=== PATIENT | male | born 1955 | race African-American/Black ===

== ENCOUNTER 2017-07-15 16:59 | Emergency (ER) | payer OTHER, MEDICARE ==
[~2017-07-15] VITALS: Ht 177.8 cm; Wt 70.3 kg
[2017-07-15 17:06] VITALS: BP_SYST 97
[2017-07-15] MEDS ORDERED: methylPREDNISolone SOD SUCC/PF 62.5 MG/ML VIAL IVP ONE (17:15)
[2017-07-15 17:34] LABS: EOSINOPHILS # (AUTO) 0.5 K/uL (0.0-0.4); HEMATOCRIT 46.1 % (36-54); MONOCYTES # (AUTO) 0.7 K/uL (0.0-1.0)
[2017-07-15 17:36] LABS: BASOPHILS % (AUTO) 0.3 % (0.0-2.0); EOSINOPHILS % (AUTO) 5.4 % (0.0-4.0); LYMPHOCYTES # (AUTO) 3.6 K/uL (1.0-5.5); LYMPHOCYTES % (AUTO) 39.8 % (20.5-51.5); MEAN CORPUSCULAR HEMOGLOBIN 34 pg (27-31); MEAN CORPUSCULAR HGB CONC 33 % (32-36); MEAN CORPUSCULAR VOLUME 104 fL (79.0-98.0); MONOCYTES % (AUTO) 7.1 % (1.7-9.3); NEUTROPHILS # (AUTO) 4.4 K/uL (1.8-7.7); NEUTROPHILS % (AUTO) 47.4 % (40.0-70.0); PLATELET COUNT (AUTO) 214 K/uL (130-430); RED BLOOD CELL COUNT(AUTO) 4.43 MIL/uL (4.2-6.2); RED CELL DISTRIBUTION WIDTH 12.7 % (9.0-15.0); WHITE BLOOD COUNT (AUTO) 9.2 K/uL (4.8-10.8)
[2017-07-15 17:44] LABS: CALCIUM 9.2 mg/dL (8.4-11.0); CREATININE 1.35 mg/dL (0.55-1.30); POTASSIUM 3.5 mmol/L (3.5-5.1)
[2017-07-15 17:49] LABS: ALBUMIN 3.5 g/dL (3.4-4.8); TOTAL BILIRUBIN 0.5 mg/dL (0.0-1.0)
[2017-07-15 19:00] VITALS: BP_SYST 133
== END 2017-07-15 19:00 | disposition home or self-care (01) ==
LOC: SED 16:59
DX: J45.901 Unspecified asthma with (acute) exacerbation (principal); Z88.2 Allergy status to sulfonamides
CPT/HCPCS: 36415; 71045; 80053; 83880; 84484; 85025; 93005; 96374; 99285; J2930